=== PATIENT | male | born 1995 | race Caucasian/White ===

== ENCOUNTER 2019-01-02 00:29 | Emergency (ER) | payer OTHER ==
[2019-01-02] MEDS ORDERED: Sulfameth/Trimethoprim DS 800-160mg TAB ONE (00:48)
[2019-01-02] MEDS ORDERED: Ondansetron ODT 4 MG TAB ONE (00:48)
== END 2019-01-02 01:05 | disposition home or self-care (01) ==
LOC: NAV ERS 00:29
DX: L02.512 Cutaneous abscess of left hand (principal)
CPT/HCPCS: 99283; Q0162

== ENCOUNTER 2019-02-26 19:06 | Emergency (ER) | payer OTHER ==
[2019-02-26] MEDS ORDERED: Ketorolac Tromethamine 30 MG/ML VIAL ONE (19:26)
[2019-02-26] MEDS ORDERED: Lidocaine Viscous Sol 2% 15 ml UD Cup ONE (19:26)
[2019-02-26] MEDS ORDERED: Mag-Al Plus 1200 MG/1200 MG/120 MG/30 ML UDCUP ONE (19:26)
--- NOTE | 2019-02-26 19:50 | RAD ---
EXAM: Chest 2 views: HISTORY: Chest pain COMPARISON: None. FINDINGS: There is a normal-sized cardiomediastinal silhouette. There is no evidence of consolidation, mass, or pleural effusion. The bones are unremarkable. IMPRESSION: No evidence of acute cardiopulmonary disease
== END 2019-02-26 20:15 | disposition home or self-care (01) ==
LOC: NAV ERS 19:06
DX: R07.9 Chest pain, unspecified (principal)
CPT/HCPCS: 71046; 93005; 96374; J1885